=== PATIENT | male | born 1970 | race Caucasian/White ===

== ENCOUNTER 2017-03-04 10:34 | Emergency (ER) | payer OTHER ==
[~2017-03-04] VITALS: Wt 93.0 kg
[~2017-03-04 10:34] MED LIST: ACET-915 PO
[2017-03-04] MEDS ORDERED: IBUPROFEN 600 MG TAB PO ONE (11:00)
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
[2017-03-04] MEDS ORDERED: IBUP-1542 PO (13:12)
[2017-03-04] MEDS ORDERED: ORPH100T PO (13:13)
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
== END 2017-03-04 13:32 | disposition home or self-care (01) ==
LOC: FTE 10:34
DX: S19.9XXA Unspecified injury of neck, initial encounter (principal); S29.9XXA Unspecified injury of thorax, initial encounter; V43.52XA Car driver injured in collision with other type car in traffic accident, initial encounter
CPT/HCPCS: 72040; 72072; 72100; Z7502; Z7610